=== PATIENT | female | born 1990 | race Caucasian/White ===

== ENCOUNTER 2025-03-01 19:22 | Emergency (ER) | payer MEDICAID ==
[~2025-03-01] VITALS: Ht 157.5 cm; Wt 96.0 kg
[2025-03-01 19:30] VITALS: O2SAT 77
[2025-03-01 20:26] LABS: CLARITY URINE CLEAR (CLEAR); COLOR URINE DARK YELLOW (YELLOW); GLUCOSE URINE NEGATIVE (NEGATIVE); KETONES URINE TRACE (NEGATIVE); LEUKOCYTE ESTERASE URINE 2+ (NEGATIVE); NITRITE URINE NEGATIVE (NEGATIVE); OCCULT BLOOD URINE TRACE (NEGATIVE); PH URINE 5.5 (4.5-8.0); PROTEIN URINE TRACE (NEGATIVE); SPECIFIC GRAVITY URINE 1.038 (1.005-1.030); UROBILINOGEN URINE 1.0 E.U./dL (0.2-1.0)
[2025-03-01 20:33] LABS: BACTERIA URINE 2+; SQUAMOUS EPITHELIAL CELL URINE 1+ /lpf (RARE/1+)
[2025-03-01 20:57] LABS: BASOPHILS % 0.6 % (0.0-2.0); EOSINOPHILS % 2.6 % (0.0-5.0); HEMATOCRIT. 38.2 % (36.0-48.0); HEMOGLOBIN. 12.5 g/dL (12.0-16.0); LYMPHOCYTES % 26.2 % (20.0-50.0); MEAN PLATELET VOLUME 7.5 fl (7.4-10.4); MONOCYTES % 8.0 % (2.0-8.0); NEUTROPHILS % 62.6 % (40.0-76.0); PLATELET 342 x1000/uL (130-400); RED BLOOD CELL COUNT 4.25 mill/uL (4.2-5.4); RED CELL DISTRIBUTION WIDTH 13.0 % (11.6-14.6)
[2025-03-01 21:10] LABS: INR 1.0
[2025-03-01 21:11] LABS: HCG SCREEN POSITIVE
[2025-03-01 21:22] LABS: CREATININE 0.7 mg/dL (0.6-1.0); UREA NITROGEN BLOOD 12 mg/dL (9-23)
[2025-03-01 21:23] LABS: B-HCG QUANTITATIVE 21 mIU/mL (<6)
[2025-03-01 23:03] VITALS: BP 108/43; PULSE 79; RESP 16; TEMP 36.8; O2SAT 99
== END 2025-03-01 23:39 | disposition home or self-care (01) ==
LOC: ER 19:22
DX: O46.90 Antepartum hemorrhage, unspecified, unspecified trimester (principal); O02.1 Missed abortion; Z3A.00 Weeks of gestation of pregnancy not specified
CPT/HCPCS: 36415; 76830; 76856; 80048; 81003; 81025; 84702; 84703; 85025; 86850; 86900; 99284

== ENCOUNTER 2025-07-27 15:02 | Emergency (ER) | payer MEDICAID ==
[~2025-07-27] VITALS: Ht 167.6 cm; Wt 90.0 kg
[2025-07-27 15:06] VITALS: O2SAT 100
[2025-07-27] MEDS ORDERED: ACETAMINOPHEN 325MG TABLET PO ONE (18:30)
[2025-07-27 20:01] LABS: BASOPHILS % 1.0 % (0.0-2.0); EOSINOPHILS % 2.0 % (0.0-5.0); HEMATOCRIT. 39.5 % (36.0-48.0); HEMOGLOBIN. 13.2 g/dL (12.0-16.0); LYMPHOCYTES % 28.5 % (20.0-50.0); MEAN PLATELET VOLUME 7.3 fl (7.4-10.4); MONOCYTES % 5.1 % (2.0-8.0); NEUTROPHILS % 63.4 % (40.0-76.0); PLATELET 397 x1000/uL (130-400); RED BLOOD CELL COUNT 4.46 mill/uL (4.2-5.4); RED CELL DISTRIBUTION WIDTH 13.8 % (11.6-14.6)
[2025-07-27 20:18] LABS: CREATININE 0.6 mg/dL (0.6-1.0); UREA NITROGEN BLOOD 7 mg/dL (9-23)
[2025-07-27 20:19] LABS: PROTEIN TOTAL 7.2 g/dL (6.0-8.3)
[2025-07-27 20:20] LABS: ASPARTATE AMINOTRANSFERASE 24 IU/L (<34); BILIRUBIN DIRECT < 0.1 mg/dL (<=3.0); BILIRUBIN TOTAL 0.4 mg/dL (0.1-1.0)
[2025-07-27 20:22] LABS: HCG SCREEN POSITIVE
[2025-07-27] MEDS: METOCLOPRAMIDE HCL 5MG TABLET PO ONE (21:31)
[2025-07-27] MEDS: ACETAMINOPHEN 500MG TABLET PO NR (21:31)
[2025-07-28 00:23] VITALS: BP 137/86; PULSE 82; RESP 15; TEMP 36.7; O2SAT 99
== END 2025-07-28 00:24 | disposition home or self-care (01) ==
LOC: ER 15:02
DX: O9A.211 Injury, poisoning and certain other consequences of external causes complicating pregnancy, first trimester (principal); S39.012A Strain of muscle, fascia and tendon of lower back, initial encounter; O26.891 Other specified pregnancy related conditions, first trimester; R10.20 Pelvic and perineal pain unspecified side; Z98.890 Other specified postprocedural states; Z3A.08 8 weeks gestation of pregnancy; V89.2XXA Person injured in unspecified motor-vehicle accident, traffic, initial encounter; Y93.89 Activity, other specified; Y92.410 Unspecified street and highway as the place of occurrence of the external cause; Y99.8 Other external cause status
CPT/HCPCS: 99284; 76801; 80076; 80048; 81025; 84703; 84702; 83690; 85025; 36415; 76817; J8597